=== PATIENT | male | born 1995 | race Caucasian/White ===

== ENCOUNTER 2018-01-09 10:35 | Emergency (ER) | payer MEDICAID, OTHER ==
[2018-01-09] MEDS: IBUPROFEN 600 MG TAB PO (11:35)
[2018-01-09] MEDS: IBUPROFEN 200 MG TAB PO (13:03)
[2018-01-09 13:57] LABS: ADD UMIC NO; UR ASCORBIC ACID NEGATIVE (NEGATIVE); UR BILIRUBIN (Dip) NEGATIVE (NEGATIVE); UR BLOOD (Dip) NEGATIVE (NEGATIVE); UR CLARITY CLEAR (CLEAR); UR COLOR YELLOW (YELLOW); UR GLUCOSE (Dip) NEGATIVE (NEGATIVE); UR KETONES (Dip) NEGATIVE (NEGATIVE); UR LEUKOCYTE ESTERASE (Dip) NEGATIVE Leu/ul (NEGATIVE); UR NITRITE (Dip) NEGATIVE (NEGATIVE); UR SPECIFIC GRAVITY (Dip) 1.015 (1.003-1.030); UR TOTAL PROTEIN (Dip) NEGATIVE (NEGATIVE); UR UROBILINOGEN (Dip) NEGATIVE (NEGATIVE)
[2018-01-09] MEDS: HYDROCODONE/APAP (5/325) TAB PO (14:10)
== END 2018-01-09 14:14 | disposition home or self-care (01) ==
LOC: FTE 10:35
DX: S80.12XA Contusion of left lower leg, initial encounter (principal); S80.11XA Contusion of right lower leg, initial encounter; V13.4XXA Pedal cycle driver injured in collision with car, pick-up truck or van in traffic accident, initial encounter; Z87.891 Personal history of nicotine dependence
CPT/HCPCS: 73550; 73562; 81003; 93971; 99285-25